=== PATIENT | male | born 1985 | race Caucasian/White ===

== ENCOUNTER 2021-12-10 11:18 | Emergency (ER) | payer MEDICAID ==
[~2021-12-10] VITALS: Ht 172.7 cm; Wt 109.0 kg
[2021-12-10 11:37] VITALS: BP 150/88
== END 2021-12-10 15:14 | disposition left against medical advice (07) ==
LOC: ER 11:18
DX: Z53.21 Procedure and treatment not carried out due to patient leaving prior to being seen by health care provider (principal); Z87.19 Personal history of other diseases of the digestive system

== ENCOUNTER 2023-09-15 20:45 | Emergency (ER) | payer MEDICAID ==
[~2023-09-15] VITALS: Ht 170.2 cm; Wt 104.0 kg
[2023-09-15 21:17] VITALS: BP 133/83; PULSE 120; RESP 14; TEMP 98.2; O2SAT 96
[2023-09-15] MEDS ORDERED: LORAZEPAM 1MG TABLET PO ONE (23:15)
[2023-09-15 23:17] LABS: BASOPHILS % 0.3 % (0.0-2.0); EOSINOPHILS % 0.6 % (0.0-5.0); HEMATOCRIT. 41.3 % (42.0-52.0); HEMOGLOBIN. 14.1 g/dL (14.0-18.0); LYMPHOCYTES % 12.1 % (20.0-50.0); MEAN CORPUSCULAR HGB CONC 34.1 g/dL (31.0-37.0); MEAN PLATELET VOLUME 6.6 fl (7.4-10.4); MONOCYTES % 7.8 % (2.0-8.0); NEUTROPHILS % 79.2 % (40.0-76.0); PLATELET 234 x1000/uL (130-400); RED BLOOD CELL COUNT 4.54 mill/uL (4.7-6.1); RED CELL DISTRIBUTION WIDTH 12.9 % (11.6-14.6); WHITE BLOOD COUNT 8.4 x1000/uL (4.5-11.0)
[2023-09-15 23:20] LABS: CHLORIDE 102 mEq/L (98-107); POTASSIUM 4.3 mEq/L (3.5-5.1); SODIUM 136 mEq/L (136-145)
[2023-09-15 23:21] LABS: CARBON DIOXIDE 30 mEq/L (21-32)
[2023-09-15 23:22] LABS: CALCIUM 9.8 mg/dL (8.7-10.4)
[2023-09-15 23:26] LABS: CREATININE 0.9 mg/dL (0.6-1.3); GLUCOSE 96 mg/dL (70-105)
[2023-09-15 23:27] LABS: UREA NITROGEN BLOOD 9 mg/dL (9-23)
[2023-09-15 23:28] LABS: ACETAMINOPHEN < 2 ug/mL (10-30)
[2023-09-15 23:36] LABS: ETHANOL BLOOD < 10 mg/dL (<10)
[2023-09-16] MEDS ORDERED: IBUP-2029 MT (01:36)
[2023-09-16] MEDS ORDERED: CEPH500C2 MT (01:36)
[2023-09-16] MEDS ORDERED: NALO4SPR BOTHNSTRLS (01:36)
[2023-09-16] MEDS: LORAZEPAM 1MG TABLET PO NR (02:36)
== END 2023-09-16 03:30 | disposition home or self-care (01) ==
LOC: ER 20:45
DX: L03.116 Cellulitis of left lower limb (principal); L03.115 Cellulitis of right lower limb; R00.0 Tachycardia, unspecified; F19.90 Other psychoactive substance use, unspecified, uncomplicated; F12.90 Cannabis use, unspecified, uncomplicated; F15.90 Other stimulant use, unspecified, uncomplicated
CPT/HCPCS: 36415; 80048; 80307; 80320; 80329; 85025; 93005; 93970; 99284; G0480

== ENCOUNTER 2024-08-07 21:08 | Emergency (ER) | payer MEDICAID ==
[~2024-08-07] VITALS: Ht 172.7 cm; Wt 110.0 kg
[~2024-08-07 21:08] MED LIST: CEPH500C2 MT; IBUP-2029 MT; NALO4SPR BOTHNSTRLS
[2024-08-07 21:13] VITALS: O2SAT 100
[2024-08-07 21:16] VITALS: TEMP 36.9; O2SAT 100
[2024-08-07 23:24] VITALS: BP 164/93; PULSE 110; RESP 18
[2024-08-07] MEDS ORDERED: MUPI1OIN4 TP (23:24)
[2024-08-07] MEDS: KETOROLAC 30MG/ML VIAL IM ONE (23:24)
[2024-08-07] MEDS: CEPHALEXIN 250MG CAPSULE PO ONE (23:24)
[2024-08-07] MEDS ORDERED: SULF1TAB48 MT (23:24)
[2024-08-07] MEDS: SULFAMETHOXAZOLE/TRIMETHOPRIM 800/160MG TABLET PO ONE (23:24)
== END 2024-08-07 23:31 | disposition home or self-care (01) ==
LOC: ER 21:08
DX: L03.116 Cellulitis of left lower limb (principal); F12.90 Cannabis use, unspecified, uncomplicated; F15.90 Other stimulant use, unspecified, uncomplicated; Z79.899 Other long term (current) drug therapy
CPT/HCPCS: 99285; 93971; 96372; J1885